=== PATIENT | female | born 1935 | race Caucasian/White ===

== ENCOUNTER → 2017-09-16 | Outpatient (CLI) | payer MEDICARE ==
[~2017-09-16] MED LIST: ACTOS15 MG PO; ATORVASTATIN CA20 MG PO; CIPRO500 MG PO; GLIPIZIDE ER5 MG PO; JANUVIA100 MG PO; LANTUS 3ML100 UNITS/ SC; RANEXA500 MG PO; VASOTEC10 MG PO; ZETIA10 MG PO
--- NOTE | 2017-09-16 10:57 | Diagnostic Imaging Report ---
PROCEDURE:US RETROPERITONEAL ( KIDNEY ). COMPARISON:None. INDICATIONS:UTI, Microscopic Hematuria TECHNIQUE: [place]-scale and color sonographic images of the bilateral kidneys and bladder where obtained in transverse and longitudinal planes. FINDINGS: RIGHT KIDNEY: 9.7 cm in length, cortical thickness 1.2 cm. Cysts: None Solid masses: None Stones: None Hydronephrosis: None Echogenicity: Normal renal cortical echogenicity. LEFT KIDNEY: 8.6 cm in length, cortical thickness 1.2 cm. Cysts: 1 x 0.8 x 1.1 cm round anechoic simple cyst in the lower pole. Solid masses: None Stones: None Hydronephrosis: None Echogenicity: Normal renal cortical echogenicity. Bladder: Unremarkable. Right and left ureteral jets are identified. CONCLUSION: Simple cyst in the lower pole of left kidney. Otherwise unremarkable renal ultrasound. Dictated by: Gustavo Lomas M.D. on 09/16/2017 at 10:58 Electronically approved by: Gustavo Lomas M.D. on 09/16/2017 at 10:58
== END ==
LOC: US 09:55
PROVIDERS: ATTEND Urology
DX: R31.9 Hematuria, unspecified (principal); N39.0 Urinary tract infection, site not specified
CPT/HCPCS: 76770

== ENCOUNTER → 2017-10-15 | Day surgery (SDC) | payer MEDICARE ==
[2017-10-13 17:14] LABS: BASOPHILS # (AUTO) 0.1 (0.0-0.1); BASOPHILS % 0.5 % (0.0-1.0); EOSINOPHILS # (AUTO) 0.2 (0.0-0.4); EOSINOPHILS % 2.3 % (0.0-6.0); HEMATOCRIT 33.3 % (34.2-44.1); HEMOGLOBIN 10.7 g/dL (12.0-16.0); LYMPHOCYTES # (AUTO) 1.3 (1.0-3.2); LYMPHOCYTES % 14.2 % (18.0-39.1); MEAN CORPUSCULAR HEMOGLOBIN 27.9 pg (28-32); MEAN CORPUSCULAR HGB CONC 32.1 g/dL (31-35); MEAN CORPUSCULAR VOLUME 86.9 fL (81-99); MONOCYTES # (AUTO) 0.7 (0.2-0.8); MONOCYTES % 7.2 % (4.4-11.3); NEUTROPHILS # (AUTO) 7.1 (2.1-6.9); NEUTROPHILS % 75.4 % (38.7-80.0); PLATELET COUNT 262 x10e3/uL (140-360); RED BLOOD COUNT 3.83 x10e6/uL (3.6-5.1); RED CELL DISTRIBUTION WIDTH 13.2 % (11.7-14.4)
--- NOTE | 2017-10-13 17:18 | Diagnostic Imaging Report ---
PROCEDURE: X-RAY CHEST, TWO VIEWS COMPARISON: Patients [facility], [place], DX, CHEST SINGLE (PORTABLE), 04/13/2017, 12:01. INDICATIONS: PRE-OPERATIVE CHEST X-RAY FOR BLADDER SURGERY FINDINGS: LUNGS: No mass or infiltrate. Mild eventration of the right diaphragm is normal.The pulmonary vascular markings are normal. PLEURA: No effusions or pneumothorax. HEART \T\ MEDIASTINUM: Stable cardiac bypass stages. The aorta is ectatic with calcifications of the descending thoracic aorta. BONES \T\ SOFT TISSUES: Pedicle screws in the upper lumbar spine are intact without lucency to suggest loosening. CONCLUSION: No acute thoracic abnormality. Dictated by: Stephany Ryan M.D. on 10/13/2017 at 17:20 Electronically approved by: Stephany Ryan M.D. on 10/13/2017 at 17:20
[2017-10-13 17:32] LABS: ANION GAP 12.6 mmol/L (8-16); CALCIUM 9.4 mg/dL (8.4-10.2); CREATININE, SERUM 1.99 mg/dL (0.57-1.11); POTASSIUM 4.6 mmol/L (3.5-5.1)
[~2017-10-15] MED LIST changes: +CEFTRIAXONE SOD 1 GM VIAL ONE; +DEXAMETHASONE SOD PHOS INJ 4 MG/ML VIAL ONE; +FENTANYL CITRATE/PF 100MCG/2 ML INJ ONE; +GLIPIZIDE5 MG PO; +HUMALOG100 UNIT/1 INJ; +IOPAMIDOL 610MG/1ML 300 MG/ML VIAL IV ONE; +LANTUS 3ML100 UNITS/; +LEVOTHYROXINE112 MCG PO; +LIDOCAINE HCL 2% LOCAL INJ 5 ML SDV VIAL INJ ONE; +NITROGLYCERIN0.4 MG SL; +PIOGLITAZONE HC45 MG PO; +PROPOFOL IV EMULSION 10 MG/ML 20 ML VIAL ONE; +SEVOFLURANE INHAL SOLN 250 ML PEN BTL ONE; +VITAMIN B-121000 MC1; +XANAX2 MG; +[UNRECOGNIZED DRUG - OTHER]
--- OUTSIDE RECORDS SUMMARY | 2017-10-15 06:44 | XMS REPORT | Clinical Summary ---
Author Author [facility] Address Unknown Phone Unavailable Care Team Providers Care Paste Up Copy Camera Operator Name Role Phone Gustavo Chamberlain MD PCP Unavailable Allergies No Known Allergies Current Medications Prescription Sig. Disp. Refills Start End Date Status Date insulin lispro (HumaLOG) Inject 4 Units under the Active 100 unit/mL injection skin 3 (three) times a day before meals. insulin GLARGINE (LANTUS) Inject 10 Units under the Active 100 unit/mL injection skin nightly. (vial) levothyroxine (SYNTHROID, Take 150 mcg by mouth Active LEVOXYL) 150 mcg tablet every morning. atorvastatin (LIPITOR) 10 Take 10 mg by mouth Active MG tablet daily. aspirin (ECOTRIN) 81 MG Take 81 mg by mouth Active enteric coated tablet daily. ALPRAZolam (XANAX) 1 MG Take 1 mg by mouth Active tablet nightly as needed for anxiety. enalapril (VASOTEC) 5 MG Take 5 mg by mouth daily. Active tablet Active Problems Not on file Encounters Date Type Specialty Care Team Description 07/03/2017 Emergency Emergency Medicine Ishaan Andersen MD Facial laceration, initial encounter (Primary Dx); Injury of head, initial encounter; Fall, initial encounter after 10/14/2016 Social History Tobacco Use Types Packs/Day Years Used Date Never Smoker Smokeless Tobacco: Never Used Alcohol Use Drinks/Week oz/Week Comments No Sex Assigned at Date Recorded Not on file Last Filed Vital Signs Vital Sign Reading Time Taken Blood Pressure 136/68 07/03/2017 5:44 PM PAIN MANAGEMENT NURSE PRACTITIONER Pulse 73 07/03/2017 5:44 PM PAIN MANAGEMENT NURSE PRACTITIONER Temperature 35.8 C (96.5 F) 07/03/2017 3:46 PM PAIN MANAGEMENT NURSE PRACTITIONER Respiratory Rate 18 07/03/2017 5:44 PM PAIN MANAGEMENT NURSE PRACTITIONER Oxygen Saturation 99% 07/03/2017 5:44 PM PAIN MANAGEMENT NURSE PRACTITIONER Inhaled Oxygen - - Concentration Weight - - Height 160 cm (5' 3") 07/03/2017 3:48 PM PAIN MANAGEMENT NURSE PRACTITIONER Body Mass Index - - Plan of Treatment Health Maintenance Due Date Last Done Comments SHINGRIX VACCINE (#1) 1986 ZOSTER VACCINE 1996 PNEUMOCOCCAL 2001 POLYSACCHARIDE VACCINE AGE 65 AND OVER PNEUMOCOCCAL-13 2001 INFLUENZA VACCINE 01/12/2018 Procedures Procedure Name Priority Date/Time Associated Diagnosis Comments IL RESUPERF WND FACE Routine 07/03/2017 Results for this 2.6-5 CM 5:32 PM PAIN MANAGEMENT NURSE PRACTITIONER procedure are in the results section. after 10/14/2016 Results * LACERATION REPAIR (07/03/2017 5:32 PM) Narrative Ishaan Andersen MD 07/03/20175:32 PM Laceration Repair Performed by: ISHAAN ANDERSEN Authorized by: ISHAAN ANDERSEN Consent: Consent obtained:Verbal and written Consent given by:Patient Risks discussed:Infection, pain, poor cosmetic result, poor wound healing, need for additional repair and nerve damage Alternatives discussed:No treatment, observation and referral [place] protocol: Procedure explained and questions answered to patient or proxy's satisfaction: yes Relevant documents present and verified: yes Test results available and properly labeled: yes Imaging studies available: yes Required blood products, implants, devices, and special equipment available: yes Site/side marked: yes Immediately prior to procedure, a time out was called: yes Patient identity confirmed:Verbally with patient, arm band, provided demographic data and hospital-assigned identification number Anesthesia (see MAR for exact dosages): Anesthesia method:Local infiltration Local anesthetic:Lidocaine 1% WITH epi Laceration details: Location:Face Face location:Forehead Length (cm):2.6 Depth (mm):4 Repair type: Repair type:Simple Pre-procedure details: Preparation:Patient was prepped and draped in usual sterile fashion and imaging obtained to evaluate for foreign bodies Exploration: Hemostasis achieved with:Epinephrine Wound exploration: entire depth of wound probed and visualized Wound extent: areolar tissue violated, fascia violated and muscle damage Wound extent: no foreign bodies/material noted, no nerve damage noted, no tendon damage noted, no underlying fracture noted, no vascular damage noted and no amputation Contaminated: no Treatment: Area cleansed with:Betadine and saline Amount of cleaning:Standard Irrigation solution:Sterile saline Irrigation volume:500 Irrigation method:Pressure wash Skin repair: Repair method:Sutures Suture size:3-0 Suture technique:Simple interrupted Number of sutures:2 Approximation: Approximation:Loose Vermilion border: poorly aligned Post-procedure details: Dressing:Antibiotic ointment Patient tolerance of procedure:Tolerated well, no immediate complications Comments: Discussed with pt that forehead laceration is jagged with some avulsed tissue and initial repair in ER is to close laceration loosely to allow drainage and prevent infection- pt is referred to plastic surgery to ensure adequate cosmetic result * CT Head Wo Contrast (07/03/2017 4:20 PM) Specimen [facility] [address] [place] [address] Narrative EXAMINATION: CT HEAD WO CONTRAST COMPARISON: None CLINICAL HISTORY fallhead traumar o ich. TECHNIQUE: Non-contrast CT scan of the head with thin-section contiguous transaxial images from the skull base to the vertex. CT scans are performed using radiation dose reduction techniques. Technical factors are evaluated and adjusted to ensure appropriate moderation of exposure. Automated dose management technology is applied to adjust radiation exposure while achieving a highly diagnostic quality image. FINDINGS: Nonenhanced emergency cranial CT was performed at approximately 1553 hours. There is diffuse atrophic ventricular and sulcal dilatation. There are mild diffuse chronic microvascular ischemic changes in the deep white matter in both hemispheres. There is chronic left occipital infarct with volume loss. There is no definite acute intracranial hemorrhage or skull fracture. IMPRESSION: Generalized atrophic changes. Chronic left occipital infarct. No acute hemorrhage or skull fracture. [facility]-[id number] Procedure Note Interface, Radiology Results Incoming - 07/03/2017 4:24 PM PAIN MANAGEMENT NURSE PRACTITIONER EXAMINATION: CT HEAD WO CONTRAST COMPARISON: None CLINICAL HISTORY fall head trauma r o ich. TECHNIQUE: Non-contrast CT scan of the head with thin-section contiguous transaxial images from the skull base to the vertex. CT scans are performed using radiation dose reduction techniques. Technical factors are evaluated and adjusted to ensure appropriate moderation of exposure. Automated dose management technology is applied to adjust radiation exposure while achieving a highly diagnostic quality image. FINDINGS: Nonenhanced emergency cranial CT was performed at approximately 1553 hours. There is diffuse atrophic ventricular and sulcal dilatation. There are mild diffuse chronic microvascular ischemic changes in the deep white matter in both hemispheres. There is chronic left occipital infarct with volume loss. There is no definite acute intracranial hemorrhage or skull fracture. IMPRESSION: Generalized atrophic changes. Chronic left occipital infarct. No acute hemorrhage or skull fracture. [facility]-[id number] after 10/14/2016 Insurance Payer Benefit Subscriber ID Type Phone Address Plan / Group MEDICARE MEDICARE xxxxxxxxxx Medicare [place], [place] PART A AND B AETNA AETNA PPO xxxxxxxxxx PPO OPEN CHOICE AETNA MEDICARE AETNA xxxxxxxx HMO MEDICARE HMO/PPO [facility]
--- OUTSIDE RECORDS SUMMARY | 2017-10-15 06:44 | XMS REPORT ---
Author Author [facility] Address Unknown Phone Unavailable Care Team Providers Care Automatic Hemmer Name Role Phone CRISTIAN COLEMAN Unavailable Unavailable JACKIE WHITNEY Unavailable Unavailable FELICIANO YEN Unavailable Unavailable SHU SAMANIEGO Unavailable Unavailable Problems This patient has no known problems. Allergies, Adverse Reactions, Alerts This patient has no known allergies or adverse reactions. Medications This patient has no known medications. Encounters Start Date/Time End Date/Time Encounter Type Admission Type Attending [facility] Care Department Encounter ID 2017-04-05 09:00:00 Inpatient C CRISTIAN COLEMAN [facility] [id number] Results Test Description Test Time Test Comments Text Results Atomic Results Result Comments CHEST 2 VIEWS [place] [address] Patient Name: ANTOINETTE GOMES MR #: [id number] : 1935 Age/Sex: 82/F Req # : [id number] [facility] Physician: Ordered by: TAMAR JIMENES MD Report #: [id number] Location: OR Room/Bed: Procedure: [id number] DX/CHEST 2 VIEWS Exam Date: 10/13/17 Exam Time: 1700 REPORT STATUS: Signed PROCEDURE: X-RAY CHEST, TWO VIEWS COMPARISON: [facility], DX, CHEST SINGLE (PORTABLE), 04/13/2017 , 12:01. INDICATIONS: PRE-OPERATIVE CHEST X-RAY FOR BLADDER SURGERY FINDINGS: LUNGS: No mass or infiltrate. Mild eventration of the right diaphragm is normal. The pulmonary vascular markings are normal. PLEURA: No effusions or pneumothorax. HEART T MEDIASTINUM: Stable cardiac bypass stages. The aorta is ectatic with calcifications of the descending thoracic aorta. BONES T SOFT TISSUES: Pedicle screws in the upper lumbar spine are intact without lucency to suggest loosening. CONCLUSION: No acute thoracic abnormality. Dictated by : Simona Ryan M.D. on 10/13/2017 at 17:20 Electronically approved by : Simona Ryan M.D. on 10/13/2017 at 17:20 Dictated By: SIMONA RYAN MD 172 COPY TO: TAMAR JIMENES MD US RENAL RETROPERITONEAL COMP [place] [address] Patient Name: ANTOINETTE GOMES MR #: [id number] : 1935 Age/Sex: 82/F Req #: [id number] Adm Physician: Ordered by: FELICIANO YEN MD Report #: [id number] Location: Room/Bed: Procedure: [id number] US/US RENAL RETROPERITONEAL COMP Exam Date: 09/16/17 Exam Time: 1027 REPORT STATUS: Signed PROCEDURE : US RETROPERITONEAL ( KIDNEY ). COMPARISON: None. INDICATIONS: UTI, Microscopic Hematuria TECHNIQUE: [place]-scale and color sonographic images of the bilateral kidneys and bladder where obtained in transverse and longitudinal planes. FINDINGS: RIGHT KIDNEY: 9.7 cm in length , cortical thickness 1.2 cm. Cysts: None Solid masses: None Stones: None Hydronephrosis: None Echogenicity: Normal renal cortical echogenicity. LEFT KIDNEY: 8.6 cm in length, cortical thickness 1.2 cm. Cysts: 1 x 0.8 x 1.1 cm round anechoic simple cyst in the lower pole. Solid masses: None Stones: None Hydronephrosis: None Echogenicity: Normal renal cortical echogenicity. Bladder: Unremarkable. Right and left ureteral jets are identified. CONCLUSION: Simple cyst in the lower pole of left kidney. Otherwise unremarkable renal ultrasound. Dictated by: Henrry Faulkner M.D. on 09/16/2017 at 10:58 Electronically approved by: Henrry Faulkner M.D. on 09/16/2017 at 10:58 Dictated By: HENRRY FAULKNER MD 105 Transcribed By: MIKEL on 09/16/17 105 COPY TO: FELICIANO YEN MD CHEST SINGLE (PORTABLE) [place] [address] Patient Name: ANTOINETTE GOMES MR #: [id number] : 1935 Age/Sex: 81/F Req #: [id number] Adm Physician: Ordered by: SHU SAMANIEGO MD Report #: [id number] Location: ER Room/Bed: Procedure: [id number] DX/CHEST SINGLE (PORTABLE) Exam Date: 04/13/17 Exam Time: 1315 REPORT STATUS: Signed PROCEDURE: A single AP view of the chest. COMPARISON: None. INDICATIONS: SHORTNESS OF BREATH FINDINGS: Lines/tubes: None. Lungs: The lungs are well inflated and clear. There is no evidence of pneumonia or pulmonary edema. Pleura: There is no pleural effusion or pneumothorax. Heart and mediastinum: The heart and the mediastinum are unremarkable. Aorta is mildly tortuous. median sternotomy wires. Mild thickening of the right paratracheal stripe, may be related to AP technique. Bones: No acute bony abnormality. Partially seen lumbar spine fusion hardware. IMPRESSION: 1. No acute cardiopulmonary disease. Dictated by: Jose M Alcantara M.D. on 04/13/2017 at 13:38 Electronically approved by: Jose M Alcantara M.D. on 04/13/2017 at 13:38 Dictated By: JOSE M ALCANTARA MD 37 Transcribed By: MIKEL on 04/13/171337 COPY TO: SHU SAMANIEGO MD
--- NOTE | 2017-10-15 10:35 | Operative Report ---
DATE OF PROCEDURE: October 15, 2017 PREOPERATIVE DIAGNOSES 1. Multiple chronic urinary tract infections. 2. Clinical signs and symptoms of interstitial cystitis without hematuria. POSTOPERATIVE DIAGNOSES 1. Multiple chronic urinary tract infections. 2. Clinical signs and symptoms of interstitial cystitis without hematuria. PROCEDURES 1. Cystourethroscopy with hydrodistention under general anesthesia (entirely separate procedure for the clinical signs and symptoms of interstitial cystitis). 2. Cystourethroscopy with left ureteral catheterization and left retrograde pyelogram (separate procedure for diagnosis of multiple chronic urinary tract infections). 3. Cystourethroscopy with right ureteral catheterization and right retrograde pyelogram (separate procedure for multiple chronic urinary tract infections). 4. Supervision of fluoroscopy. 5. Interpretation of retrograde pyelography. ANESTHESIA: General. ESTIMATED BLOOD LOSS: Minimal. COMPLICATIONS: None. INDICATIONS: Ms. Alexandre is an 82-year-old female with multiple chronic urinary tract infections. She and I had a long discussion regarding the alternatives, risks and benefits, including doing nothing, cystoscopy, IVP, hydrodistention, retrograde pyelogram and ultrasound. She voiced an understanding of the options, the alternatives, and the risks and benefits, and she elected to proceed. PROCEDURE IN DETAIL: Informed consent was obtained. The patient was taken to the operative suite and placed supine on the table and underwent general anesthesia by the anesthesia service. She was placed in the dorsal lithotomy position. She was sterilely prepped and draped in the standard fashion for cystoscopy. Severe vaginal atrophy was noted and a grade-2 cystocele. Panendoscopy of the bladder revealed no tumors. There was positive squamous metaplasia. There was moderate trabeculation. Both ureteral orifices were in their normal anatomic location and position and were seen to efflux clear urine. Bilateral retrograde pyelograms were performed, which revealed severe medial deviation adjacent to the large amount of back hardware. There was no hydronephrosis. Otherwise normal retrograde pyelograms. Hydrodistention was performed, revealing a capacity of 800 mL, no glomerulations, no Hunner ulcers. The bladder was drained. The patient was awakened from anesthesia and transported to the recovery room in excellent condition. SUPERVISION OF FLUOROSCOPY AND INTERPRETATION OF RETROGRADE PYELOGRAPHY: I was present throughout the entire procedure and supervised the use of fluoroscopy. There was no radiologist present. Attention was turned toward the left and right ureteral orifices, which were catheterized with an 8-Samoan, cone-tip catheter in a retrograde fashion. Contrast was injected revealing delicate ureters and delicate pelvicaliceal systems with severe medial deviation next the back hardware. IMPRESSION: Medial deviation of bilateral ureters. 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 Job#: [id number]
== END | disposition home or self-care (01) ==
LOC: OR 06:43
PROVIDERS: ATTEND Urology
DX: N39.0 Urinary tract infection, site not specified (principal); N95.2 Postmenopausal atrophic vaginitis; N81.10 Cystocele, unspecified; N32.89 Other specified disorders of bladder; I25.810 Atherosclerosis of coronary artery bypass graft(s) without angina pectoris; I10 Essential (primary) hypertension; E11.9 Type 2 diabetes mellitus without complications; F41.9 Anxiety disorder, unspecified; Z88.5 Allergy status to narcotic agent; Z01.810 Encounter for preprocedural cardiovascular examination; Z01.812 Encounter for preprocedural laboratory examination; Z01.818 Encounter for other preprocedural examination; Z79.84 Long term (current) use of oral hypoglycemic drugs; Z95.1 Presence of aortocoronary bypass graft; Z95.5 Presence of coronary angioplasty implant and graft
CPT/HCPCS: 36415 ×2; 52005; 71046; 74420; 80048; 82948; 85025; 93005; C1758; J0696; J1100; J2001; Q9967

== ENCOUNTER 2019-04-02 20:11 | Emergency (ER) | payer MEDICARE ==
[~2019-04-02] VITALS: Ht 167.6 cm; Wt 86.4 kg
[~2019-04-02 20:11] MED LIST changes: -CEFTRIAXONE SOD 1 GM VIAL ONE; -DEXAMETHASONE SOD PHOS INJ 4 MG/ML VIAL ONE; -FENTANYL CITRATE/PF 100MCG/2 ML INJ ONE; -IOPAMIDOL 610MG/1ML 300 MG/ML VIAL IV ONE; -LIDOCAINE HCL 2% LOCAL INJ 5 ML SDV VIAL INJ ONE; -PROPOFOL IV EMULSION 10 MG/ML 20 ML VIAL ONE; -SEVOFLURANE INHAL SOLN 250 ML PEN BTL ONE
--- OUTSIDE RECORDS SUMMARY | 2019-04-02 20:14 | XMS REPORT ---
Author Author [facility] Address Unknown Phone Unavailable Care Team Providers Care Videotape Editor Name Role Phone VIRGINIA CRISTIAN Unavailable Unavailable JEOVANY VALENTINE Unavailable Unavailable JACKIE WHITNEY Unavailable Unavailable FELICIANO YEN Unavailable Unavailable Srinivasa SAMANIEGO Unavailable Unavailable Problems This patient has no known problems. Allergies, Adverse Reactions, Alerts This patient has no known allergies or adverse reactions. Medications This patient has no known medications. Encounters Start Date/Time End Date/Time Encounter Type Admission Type Attending [facility] Care Department Encounter ID 2017-04-05 09:00:00 Inpatient Jacky COLEMAN [facility] PT [id number] 2018-12-22 23:53:00 2018-12-22 20:57:00 Inpatient E [facility] [id number] 2018-01-28 14:03:00 2018-03-03 23:59:00 Outpatient JEOVANY [facility] PT [id number] Results Test Description Test Time Test Comments Text Results Atomic Results Result Comments CHEST 2 VIEWS [place] [address] Patient Name: ANTOINETTE GOMES MR #: [id number] : 1935 Age/Sex: 82/F Req #: [id number] Adm Physician: Ordered by: TAMAR JIMENES MD Report #: [id number] Location: OR Room/Bed: Procedure: [id number] DX/CHEST 2 VIEWS Exam Date: 10/13/17 Exam Time: 1700 REPORT STATUS: Signed PROCEDURE: X-RAY CHEST, TWO VIEWS COMPARISON: [facility], DX, CHEST SINGLE (PORTABLE), 04/13/2017, 12:01. INDICATIONS: PRE-OPERATIVE CHEST X-RAY FOR BLADDER [...] loosening. CONCLUSION: No acute thoracic abnormality. Dictated by: Simona Ryan M.D. on 10/13/2017 at 17:20 Electronically approved by: Simona Ryan M.D. on 10/13/2017 at 17:20 Dictated By: SIMONA RYAN MD 172 Transcribed By: MIKEL on 10/13/17 172 COPY TO: TAMAR JIMENES MD US RENAL RETROPERITONEAL COMP [place] [address] Patient Name: ANTOINETTE GOMES MR #: [id number] : 1935 Age/Sex: 82/F Req #: [id number] Adm Physician: Ordered by: FELICIANO YEN MD Report #: [id number] Location: Room/Bed: Procedure: [id number] US/US RENAL RETROPERITONEAL COMP Exam Date: 09/16/17 Exam Time: 1027 REPORT STATUS: Signed PROCEDURE: US RETROPERITONEAL ( KIDNEY ). COMPARISON: None. INDICATIONS: UTI, Microscopic Hematuria TECHNIQUE: [place]-scale and color sonographic images of the bilateral kidneys and bladder where obtained in transverse and longitudinal planes. FINDINGS: RIGHT KIDNEY: 9.7 cm in length, cortical thickness 1.2 cm. Cysts: None Solid [...] at 10:58 Dictated By: HENRRY FAULKNER MD 1058 Transcribed By: MIKEL on 09/16/17 1058 COPY TO: FELICIANO YEN MD CHEST SINGLE (PORTABLE) [place] [address] Patient Name: ANTOINETTE GOMES MR #: [id number] : 1935 Age/Sex: 81/F Req #: [id number] Adm Physician: Ordered by: SHU SAMANIEGO MD Report #: [id number] Location: ER Room/Bed: Procedure: [id number] DX/CHEST SINGLE (PORTABLE) Exam Date: 04/13/17 Exam Time: 1315 REPORT STATUS: Signed PROCEDURE: A single AP view of the chest. COMPARISON: None. INDICATIONS: SHORTNESS OF BREATH FINDINGS: Lines/tubes: None. Lungs: The lungs are well inflated and clear. There is no evidence of p neumonia or pulmonary edema. Pleura: There is no [...] 13:38 Dictated By: JOSE M ALCANTARA MD 1338 Transcribed By: MIKEL on 04/13/17 1338 COPY TO: SHU SAMANIEGO MD
--- NOTE | 2019-04-02 21:11 | NUR ---
report to SHAYLA Link
[2019-04-02] MEDS ORDERED: BACITRACIN ZINC 0.9GM TP ONE (22:21)
== END 2019-04-02 22:37 | disposition home or self-care (01) ==
LOC: FSED 20:11
DX: D69.2 Other nonthrombocytopenic purpura (principal); M79.671 Pain in right foot; I10 Essential (primary) hypertension; E11.9 Type 2 diabetes mellitus without complications; I25.10 Atherosclerotic heart disease of native coronary artery without angina pectoris; E78.5 Hyperlipidemia, unspecified; F41.9 Anxiety disorder, unspecified; Z95.1 Presence of aortocoronary bypass graft
CPT/HCPCS: 80048; 85025; 85610; 99283

== ENCOUNTER 2020-06-17 11:41 | Emergency (ER) | payer MEDICARE ==
[~2020-06-17] VITALS: Ht 160 cm; Wt 84.4 kg
[~2020-06-17 11:41] MED LIST changes: +ASPIRIN EC81 MG PO; +CYCLOBENZAPRINE10 MG PO; +CYMBALTA20 MG PO; +GABAPENTIN300 MG PO; -HUMALOG100 UNIT/1 INJ; +HUMALOG100 UNIT/1 SC; +LIPITOR20 MG PO; -XANAX2 MG; +XANAX2 MG PO
[2020-06-17 14:45] VITALS: BP 121/55
== END 2020-06-17 14:47 | disposition home or self-care (01) ==
LOC: FSED 12:10
DX: M25.561 Pain in right knee (principal); M25.461 Effusion, right knee; I10 Essential (primary) hypertension; E11.9 Type 2 diabetes mellitus without complications; Z96.651 Presence of right artificial knee joint; I25.10 Atherosclerotic heart disease of native coronary artery without angina pectoris; E78.5 Hyperlipidemia, unspecified; E03.9 Hypothyroidism, unspecified; F41.9 Anxiety disorder, unspecified; Z95.1 Presence of aortocoronary bypass graft
CPT/HCPCS: 99283

== ENCOUNTER 2024-07-17 10:29 | Inpatient (IN) | payer MEDICARE ==
[~2024-07-17] VITALS: Ht 160 cm; Wt 83.5 kg
[2024-07-17 10:35] VITALS: RESP 19; TEMP 97.7
[2024-07-17] MEDS ORDERED: SODIUM CHLORIDE FLUSH 10 ML SYR IV PRN (11:15)
[2024-07-17 11:21] LABS: BASOPHILS % 0.4 % (0.0-1.0); EOSINOPHILS # (AUTO) 0.1 (0.0-0.4); EOSINOPHILS % 0.8 % (0.0-6.0); HEMATOCRIT 32.3 % (34.2-44.1); HEMOGLOBIN 10.5 g/dL (12.0-16.0); LYMPHOCYTES # (AUTO) 0.8 (1.0-3.2); LYMPHOCYTES % 8.5 % (18.0-39.1); MEAN CORPUSCULAR HEMOGLOBIN 27.8 pg (28-32); MEAN CORPUSCULAR HGB CONC 32.5 g/dL (31-35); MEAN CORPUSCULAR VOLUME 85.4 fL (81-99); MONOCYTES # (AUTO) 0.5 (0.2-0.8); MONOCYTES % 4.7 % (4.4-11.3); NEUTROPHILS # (AUTO) 8.2 (2.1-6.9); NEUTROPHILS % 85.3 % (38.7-80.0); PLATELET COUNT 255 x10e3/uL (140-360); RED BLOOD COUNT 3.78 x10e6/uL (3.6-5.1); RED CELL DISTRIBUTION WIDTH 15.4 % (11.7-14.4); WHITE BLOOD COUNT 9.57 x10e3/uL (4.8-10.8)
[2024-07-17 11:46] LABS: ALBUMIN 3.6 g/dL (3.5-5.0); ALBUMIN/GLOBULIN RATIO 0.9 (0.8-2.0); ANION GAP 17.4 mmol/L (8-16); BILIRUBIN,TOTAL 0.5 mg/dL (0.2-1.2); CALCIUM 9.5 mg/dL (8.4-10.2); POTASSIUM 4.4 mmol/L (3.5-5.1); TOTAL PROTEIN 7.4 g/dL (6.5-8.1)
[2024-07-17 11:52] LABS: TROPONIN I 0.036 ng/mL (0-0.300)
[2024-07-17] MEDS ORDERED: ENOXAPARIN INJ 80 MG/0.8 ML SYR SC SCH (14:30)
[2024-07-17] MEDS ORDERED: SODIUM CHLORIDE FLUSH 10 ML SYR INJ PRN (14:30)
[2024-07-17] MEDS ORDERED: ONDANSETRON HCL INJ 2MG/ML 2ML 2 MG/ML VIAL IV PRN (14:30)
[2024-07-17 16:00] VITALS: PULSE 69
[2024-07-17 16:36] VITALS: BP 193/74; PULSE 80; RESP 18; TEMP 97.7; O2SAT 97
[2024-07-17 17:10] VITALS: BP 193/74; PULSE 80; RESP 18; TEMP 97.7; O2SAT 97
[2024-07-17] MEDS: ENOXAPARIN INJ 80 MG/0.8 ML SYR SC SCH (18:18)
[2024-07-17 20:00] VITALS: BP 175/70; PULSE 89; RESP 18; TEMP 97.6; O2SAT 96
[2024-07-17 21:00] VITALS: BP 175/70; PULSE 89; RESP 18; TEMP 97.6; O2SAT 96
[2024-07-18] VITALS (10 sets, daily range): BP systolic 119–186; BP diastolic 46–80; PULSE 59–97; RESP 16–22; TEMP 97.7–98.5; O2SAT 94–100
[2024-07-18] MEDS ORDERED: DEXTROSE 50% SYRINGE 50 ML IV PRN (00:45)
[2024-07-18] MEDS: HYDRALAZINE HCL 20 MG/ML VIAL IV ONE (01:53)
[2024-07-18] MEDS: INSULIN LISPRO 100 UNIT/1 ML 3ML VIAL SQ ONE (02:05)
[2024-07-18] MEDS: ALPRAZOLAM 1 MG TAB PO SCH (02:42)
[2024-07-18] MEDS ORDERED: HYDRALAZINE HCL 20 MG/ML VIAL IV PRN (04:00)
[2024-07-18 06:21] LABS: BASOPHILS # (AUTO) 0.1 (0.0-0.1); BASOPHILS % 0.4 % (0.0-1.0); EOSINOPHILS % 0.3 % (0.0-6.0); HEMATOCRIT 32.1 % (34.2-44.1); HEMOGLOBIN 10.3 g/dL (12.0-16.0); LYMPHOCYTES # (AUTO) 1.1 (1.0-3.2); LYMPHOCYTES % 8.3 % (18.0-39.1); MEAN CORPUSCULAR HEMOGLOBIN 28.1 pg (28-32); MEAN CORPUSCULAR HGB CONC 32.1 g/dL (31-35); MEAN CORPUSCULAR VOLUME 87.7 fL (81-99); MONOCYTES # (AUTO) 0.9 (0.2-0.8); NEUTROPHILS # (AUTO) 11.1 (2.1-6.9); NEUTROPHILS % 83.3 % (38.7-80.0); PLATELET COUNT 190 x10e3/uL (140-360); RED BLOOD COUNT 3.66 x10e6/uL (3.6-5.1); RED CELL DISTRIBUTION WIDTH 15.5 % (11.7-14.4); WHITE BLOOD COUNT 13.36 x10e3/uL (4.8-10.8)
[2024-07-18 06:47] LABS: ALBUMIN 3.4 g/dL (3.5-5.0); ANION GAP 17.2 mmol/L (8-16); BILIRUBIN,TOTAL 0.4 mg/dL (0.2-1.2); CALCIUM 9.4 mg/dL (8.4-10.2); CREATININE, SERUM 1.76 mg/dL (0.57-1.11); POTASSIUM 4.2 mmol/L (3.5-5.1); TOTAL PROTEIN 6.9 g/dL (6.5-8.1)
[2024-07-18] MEDS ORDERED: INSULIN LISPRO 100 UNIT/1 ML 3ML VIAL SQ SCH (07:30)
[2024-07-18] MEDS: LEVOTHYROXINE SODIUM 50 MCG TAB PO SCH (08:33)
[2024-07-18] MEDS: INSULIN LISPRO 100 UNIT/1 ML 3ML VIAL SQ SCH (08:33)
[2024-07-18] MEDS: EZETIMIBE 10 MG TAB PO SCH (08:35)
[2024-07-18] MEDS: ATORVASTATIN 40 MG TAB PO SCH (08:36)
[2024-07-18] MEDS: ENALAPRIL MALEATE 10 MG TAB PO SCH ×2 (08:36→17:18)
[2024-07-18] MEDS: PIOGLITAZONE HCL 15 MG TAB PO SCH (08:37)
[2024-07-18] MEDS: DULOXETINE HCL 20 MG DELAYED RELEASE PO SCH (08:41)
[2024-07-18] MEDS ORDERED: NIFEDIPINE 10 MG CAP PO PRN (09:00)
[2024-07-18] MEDS ORDERED: NIFEDIPINE CR 30 MG TAB PO PRN ×2 (09:00)
[2024-07-18] MEDS: CARVEDILOL 12.5 MG TAB PO SCH (11:18)
[2024-07-18] MEDS: ACETAMINOPHEN 325 MG TAB PO PRN (11:19)
[2024-07-18 15:58] LABS: INR 1.02
[2024-07-18] MEDS: FUROSEMIDE INJ 10 MG/ML 2 ML VIAL IV SCH (17:17)
[2024-07-18] MEDS ORDERED: ENOXAPARIN 30 MG/0.3 ML SYR SC SCH (18:00)
[2024-07-18] MEDS: ASPIRIN 81 MG ENTERIC COATED PO SCH (21:24)
[2024-07-19] VITALS (9 sets, daily range): BP systolic 123–143; BP diastolic 50–59; PULSE 55–65; RESP 16–19; TEMP 97.3–98.2; O2SAT 99–100
[2024-07-19 05:39] LABS: BASOPHILS # (AUTO) 0.1 (0.0-0.1); BASOPHILS % 0.5 % (0.0-1.0); EOSINOPHILS # (AUTO) 0.1 (0.0-0.4); EOSINOPHILS % 0.8 % (0.0-6.0); HEMATOCRIT 28.1 % (34.2-44.1); LYMPHOCYTES # (AUTO) 1.1 (1.0-3.2); MEAN CORPUSCULAR HEMOGLOBIN 28.2 pg (28-32); MEAN CORPUSCULAR VOLUME 88.1 fL (81-99); MONOCYTES # (AUTO) 0.5 (0.2-0.8); MONOCYTES % 4.7 % (4.4-11.3); NEUTROPHILS % 82.6 % (38.7-80.0); PLATELET COUNT 225 x10e3/uL (140-360); RED BLOOD COUNT 3.19 x10e6/uL (3.6-5.1); RED CELL DISTRIBUTION WIDTH 15.6 % (11.7-14.4); WHITE BLOOD COUNT 9.72 x10e3/uL (4.8-10.8)
[2024-07-19 06:17] LABS: ALBUMIN 2.9 g/dL (3.5-5.0); ALBUMIN/GLOBULIN RATIO 0.9 (0.8-2.0); ANION GAP 13.5 mmol/L (8-16); BILIRUBIN,TOTAL 0.5 mg/dL (0.2-1.2); CALCIUM 8.5 mg/dL (8.4-10.2); CREATININE, SERUM 2.25 mg/dL (0.57-1.11); POTASSIUM 4.5 mmol/L (3.5-5.1)
[2024-07-19] MEDS ORDERED: CHLORTHALIDONE 25 MG TAB PO SCH (12:00)
[2024-07-19 15:53] LABS: BODY FLUID APPEARANCE CLOUDY; BODY FLUID COLOR YELLOW; BODY FLUID TYPE PLEURAL; RBC,BODY FLUID < 2000 cells/uL; WBC,BODY FLUID 210 cells/uL
[2024-07-19 17:10] LABS: LYMPHOCYTES,BODY FLUID 25 %; MONO/MACROPHG,BODY FLUID 18 %; NEUTROPHILS,BODY FLUID 5 %; OTHER CELLS,BODY FLUID 52 %; TOTAL CELLS COUNTED (DIFF) 100
[2024-07-19] MEDS: ENOXAPARIN 30 MG/0.3 ML SYR SC SCH (17:24)
[2024-07-20 04:00] VITALS: BP 143/56; PULSE 64; RESP 18; TEMP 97.6; O2SAT 100
[2024-07-20 05:40] LABS: BASOPHILS % 0.5 % (0.0-1.0); EOSINOPHILS # (AUTO) 0.1 (0.0-0.4); EOSINOPHILS % 1.6 % (0.0-6.0); HEMATOCRIT 28.7 % (34.2-44.1); HEMOGLOBIN 9.1 g/dL (12.0-16.0); LYMPHOCYTES % 11.7 % (18.0-39.1); MEAN CORPUSCULAR HGB CONC 31.7 g/dL (31-35); MEAN CORPUSCULAR VOLUME 88.3 fL (81-99); MONOCYTES # (AUTO) 0.6 (0.2-0.8); NEUTROPHILS # (AUTO) 6.4 (2.1-6.9); NEUTROPHILS % 78.7 % (38.7-80.0); PLATELET COUNT 230 x10e3/uL (140-360); RED BLOOD COUNT 3.25 x10e6/uL (3.6-5.1); RED CELL DISTRIBUTION WIDTH 15.2 % (11.7-14.4); WHITE BLOOD COUNT 8.13 x10e3/uL (4.8-10.8)
[2024-07-20 06:09] LABS: ALBUMIN 2.9 g/dL (3.5-5.0); ALBUMIN/GLOBULIN RATIO 0.9 (0.8-2.0); ANION GAP 12.7 mmol/L (8-16); BILIRUBIN,TOTAL 0.3 mg/dL (0.2-1.2); CALCIUM 8.5 mg/dL (8.4-10.2); CREATININE, SERUM 2.38 mg/dL (0.57-1.11); POTASSIUM 4.7 mmol/L (3.5-5.1)
[2024-07-20 07:56] VITALS: BP 154/59; PULSE 63; RESP 16; TEMP 98.3; O2SAT 100
[2024-07-20 08:02] VITALS: PULSE 67; RESP 16; O2SAT 99
[2024-07-20] MEDS: FUROSEMIDE INJ 10 MG/ML 2 ML VIAL IV SCH (10:06)
[2024-07-20 11:12] VITALS: BP 154/59; PULSE 63; RESP 16; TEMP 98.3; O2SAT 99
[2024-07-20 11:32] VITALS: BP 147/55; PULSE 58; RESP 18; TEMP 97.9; O2SAT 100
[2024-07-24 07:05] LABS: TOTAL PROTEIN,BODY FLUID 3.3 g/dL
== END 2024-07-20 13:29 | disposition home or self-care (01) | DRG 291 ==
LOC: ER 10:52 → ERHOLD 14:22 → MED/SURG2 17:03
PROVIDERS: ADMIT Internal Medicine; ATTEND Internal Medicine
PROC: 0W993ZZ Drainage of Right Pleural Cavity, Percutaneous Approach (ICD-10-PCS; principal; 2024-07-19)
DX: I11.0 Hypertensive heart disease with heart failure (principal); I50.43 Acute on chronic combined systolic (congestive) and diastolic (congestive) heart failure; J96.01 Acute respiratory failure with hypoxia; J90 Pleural effusion, not elsewhere classified; N17.9 Acute kidney failure, unspecified; E11.9 Type 2 diabetes mellitus without complications; I25.10 Atherosclerotic heart disease of native coronary artery without angina pectoris; F41.9 Anxiety disorder, unspecified; E03.9 Hypothyroidism, unspecified; E78.5 Hyperlipidemia, unspecified; M54.9 Dorsalgia, unspecified; M19.90 Unspecified osteoarthritis, unspecified site; E66.9 Obesity, unspecified; Z68.32 Body mass index [BMI] 32.0-32.9, adult; Z79.4 Long term (current) use of insulin; Z79.82 Long term (current) use of aspirin; Z79.890 Hormone replacement therapy; Z95.1 Presence of aortocoronary bypass graft; Z90.49 Acquired absence of other specified parts of digestive tract; Z90.710 Acquired absence of both cervix and uterus; Z98.1 Arthrodesis status; Z88.5 Allergy status to narcotic agent; Z83.3 Family history of diabetes mellitus; Z82.49 Family history of ischemic heart disease and other diseases of the circulatory system
CPT/HCPCS: 10160; 32555; 36415; 71045; 71250; 74470; 76604; 76942; 78582; 80053; 82150; 82945; 82948; 83615; 83735; 83880; 84157; 84484; 85025; 85379; 85610; 87070; 87102; 87116; 87205; 87206; 88112; 88305; 88342; 89051; 93005; 93306; 93970; 94760; 94799; 96372; 99252; 99284; A9540; A9558; J0360; J1650; J1940